=== PATIENT | female | born 1995 | race African-American/Black ===

== ENCOUNTER 2017-05-25 12:29 | Emergency (ER) | payer OTHER ==
[2017-05-25 15:20] LABS: Hematocrit 35.1 % (37.0-47.0); Hemoglobin 11.5 gm/dL (12.5-16.0); Mean Cell Volume 79.1 fl (78-100); Mean Corpuscular Hemoglobin 25.9 pg (27-31); Mean Corpuscular Hgb Conc 32.8 g/dl (32-36); Mean Platelet Volume 10.1 fl (6.0-9.5); Neutrophil # 6.7 K/mm3 (1.3-6.0); Neutrophil % 59.4 % (42-75.0); Platelet Count 267 K/mm3 (150-450); Red Blood Count 4.44 M/mm3 (4.2-5.4); Red Cell Distribution Width 13.9 % (11.5-14.0); White Blood Count 11.3 K/mm3 (4.0-10.5)
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
[2017-05-25 15:39] LABS: Albumin * 3.5 gm/dl (3.4-5.0); Anion Gap 14.5 mmol/L (6.8-13.8); BUN/Creatinine Ratio 14.9 (9.0-21.6); Bilirubin, Total 0.3 mg/dL (0.0-1.1); Ca. Corrected For Albumin 8.7 mg/dL (8.4-10.2); Calcium * 8.6 mg/dL (7.9-10.9); Carbon Dioxide 23.3 mmol/L (24-32.6); Potassium 3.8 mmol/L (3.4-4.6); Total Protein 8.1 gm/dL (6.2-8.2)
[2017-05-25 16:27] LABS: Urine Bilirubin Negative (NEGATIVE); Urine Ketone Negative (NEGATIVE); Urine Nitrite Negative (NEGATIVE); Urine Protein Negative (NEGATIVE); Urine Specific Gravity 1.015 SP.GR. (1.005-1.010); Urine Urobilinogen Normal (NORMAL)
[2017-05-25 16:39] LABS: Urine Blood 5 /ul (NEGATIVE)
[2017-05-25 16:40] LABS: Urine Appearance Slightly Cloudy; Urine Bacteria TRACE; Urine Color Yellow; Urine RBC TRACE /hpf (0-5); Urine WBC 0-5 /hpf (0-5)
[2017-05-25 17:21] VITALS: BP 100/70
== END 2017-05-25 17:25 | disposition home or self-care (01) ==
LOC: ER 12:29
DX: S16.1XXA Strain of muscle, fascia and tendon at neck level, initial encounter (principal); S20.211A Contusion of right front wall of thorax, initial encounter; S09.90XA Unspecified injury of head, initial encounter; S30.1XXA Contusion of abdominal wall, initial encounter; S39.012A Strain of muscle, fascia and tendon of lower back, initial encounter; V49.9XXA Car occupant (driver) (passenger) injured in unspecified traffic accident, initial encounter; W22.11XA Striking against or struck by driver side automobile airbag, initial encounter; R11.0 Nausea; R10.30 Lower abdominal pain, unspecified